=== PATIENT | female | born 1985 | race Caucasian/White ===

== ENCOUNTER 2019-07-17 10:29 | Observation (INO) | payer BC ==
[2019-07-17] MEDS ORDERED: TYLENOL 325 MG PO PRN (11:23)
[2019-07-17] MEDS ORDERED: MOTRIN 600 MG PO PRN (11:23)
[2019-07-17] MEDS: solu-MEDROL 125 MG IV SCH ×2 (11:44→22:20)
[2019-07-17] MEDS: Sodium Chloride 0.9% 1000 ML 1,000 ML IV SCH ×2 (11:44→19:42)
--- NOTE | 2019-07-17 11:46 | XRAY ---
Indication: Recurrent fever. Comparison: None PA/lateral chest demonstrates normal heart, lungs, and bony thorax.
[2019-07-17] MEDS: DUONEB 0.5-3 MG/3 ml Neb IH SCH ×4 (11:55→23:49)
[2019-07-17 12:15] LABS: Mean Cell Volume 90.1 fl (78-100); Mean Corpuscular Hemoglobin 29.3 pg (26-32); Mean Corpuscular Hgb Concent. 32.5 g/dl (32-36); Mean Platelet Volume 9.6 fl (7.5-11.0); Platelet Count 254 K/mm3 (150-450); Red Blood Count 4.44 M/mm3 (4.1-5.4); Red Cell Distribution Width 14.5 % (11.5-14.0); White Blood Count 2.3 K/mm3 (4.0-10.5)
[2019-07-17 12:33] LABS: ALBUMIN 4.7 g/dL (3.5-5.0); ALKALINE PHOSPHATASE 86 U/L (38-126); ANION GAP 13.3 MEQ/L (5-15); BLOOD UREA NITROGEN 10 mg/dL (7-17); CHLORIDE 104 mmol/L (98-107); Calcium 9.7 mg/dL (8.4-10.2); Carbon Dioxide 28 mmol/L (22-30); Creatinine 1 0.76 mg/dL (0.52-1.04); Glucose 98 mg/dL (74-106); Potassium 3.9 mmol/L (3.5-5.1); SGOT/AST 29 U/L (14-36); SGPT/ALT 23 U/L (0-35); SODIUM 142 mmol/L (137-145); Total Protein 8.5 g/dL (6.3-8.2)
[2019-07-17 13:15] LABS: INFLUENZA A NEGATIVE (NEGATIVE); INFLUENZA B NEGATIVE (NEGATIVE); RESPIRATORY SYNCTIAL VIRUS NEGATIVE (Negative)
[2019-07-17] MEDS ORDERED: BENADRYL 50 MG/ML IV PRN (16:10)
[2019-07-17] MEDS ORDERED: BENADRYL 25 MG CAPSULE PO PRN (16:14)
[2019-07-17] MEDS ORDERED: DUONEB 0.5-3 MG/3 ml Neb IH ONE (19:23)
[2019-07-17] MEDS: Robitussin AC Syrup Unit Dose Cup PO PRN (20:54)
[2019-07-18] MEDS: Robitussin AC Syrup Unit Dose Cup PO PRN (02:24)
[2019-07-18] MEDS: Sodium Chloride 0.9% 1000 ML 1,000 ML IV SCH ×2 (02:25→09:15)
[2019-07-18] MEDS: DUONEB 0.5-3 MG/3 ml Neb IH SCH ×3 (04:06→10:53)
[2019-07-18 07:29] LABS: Hematocrit 34.5 % (35-47); Hemoglobin 11.1 gm/dl (12.0-16.0); Mean Cell Volume 91.3 fl (78-100); Mean Corpuscular Hemoglobin 29.4 pg (26-32); Mean Corpuscular Hgb Concent. 32.2 g/dl (32-36); Mean Platelet Volume 9.4 fl (7.5-11.0); Platelet Count 240 K/mm3 (150-450); Red Blood Count 3.78 M/mm3 (4.1-5.4); Red Cell Distribution Width 14.5 % (11.5-14.0); White Blood Count 2.4 K/mm3 (4.0-10.5)
[2019-07-18 08:10] LABS: ATYPICAL LYMPHS 2 %; BAND 22 % (0.0-2.0); Lymphocytes 44 % (24-44); Monocyte 19 % (0.0-12.0); Neutrophils 13 % (36.0-66.0); Total Cells Counted 100
[2019-07-18 08:11] LABS: Platelet Estimate NORMAL (NORMAL)
[2019-07-18 08:13] LABS: ABSOLUTE NEUTROPHILS 0.85 (1.4-6.9)
[2019-07-18 08:17] VITALS: BP 115/62
[2019-07-18] MEDS: solu-MEDROL 125 MG IV SCH (09:16)
[2019-07-18 09:31] LABS: ANION GAP 10.8 MEQ/L (5-15); BLOOD UREA NITROGEN 8 mg/dL (7-17); CHLORIDE 112 mmol/L (98-107); Calcium 8.9 mg/dL (8.4-10.2); Carbon Dioxide 24 mmol/L (22-30); Creatinine 1 0.59 mg/dL (0.52-1.04); Glucose 101 mg/dL (74-106); Potassium 3.9 mmol/L (3.5-5.1); SODIUM 142 mmol/L (137-145)
[2019-07-18] MEDS ORDERED: FLUZONE QUAD 2019-2020 SYRINGE IM ONE ×2 (10:00→12:17)
[2019-07-18] MEDS ORDERED: SYNTHROID 112 MCG PO SCH (10:00)
[2019-07-18 11:17] VITALS: PULSE 90; O2SAT 98
[2019-07-19] MEDS ORDERED: VITAMIN D2 PO SCH (10:00)
== END 2019-07-18 13:04 | disposition home or self-care (01) ==
LOC: MED SURG 11:01
PROVIDERS: ADMIT Family Medicine; ATTEND Family Medicine
DX: E86.0 Dehydration (principal); R00.0 Tachycardia, unspecified; H10.33 Unspecified acute conjunctivitis, bilateral; R05 Cough
CPT/HCPCS: 36415; 71046; 80048; 80053; 84443; 84703; 85025; 85027; 86665; 87497; 87631; 87651; 90686; 94150; 94640; 94760; G0378; J1200; J2930; A9270-GY